=== PATIENT | male | born 1995 | race Caucasian/White ===

== ENCOUNTER 2018-08-10 19:03 | Emergency (ER) | payer BC ==
[~2018-08-10] VITALS: Ht 182.9 cm; Wt 106.6 kg
[2018-08-10 19:11] VITALS: BP 147/94
[2018-08-10] MEDS ORDERED: CLEOCIN HCL150 MG PO (19:39)
== END 2018-08-10 20:05 | disposition home or self-care (01) ==
LOC: M.ERS 19:03
DX: S80.812A Abrasion, left lower leg, initial encounter (principal); L08.9 Local infection of the skin and subcutaneous tissue, unspecified; Z98.890 Other specified postprocedural states; Z88.8 Allergy status to other drugs, medicaments and biological substances; X58.XXXA Exposure to other specified factors, initial encounter; Y93.64 Activity, baseball; Y92.89 Other specified places as the place of occurrence of the external cause; Y99.8 Other external cause status